=== PATIENT | male | born 1965 | race Hispanic/Latino ===

== ENCOUNTER 2020-12-15 02:45 | Observation (INO) | payer OTHER ==
--- NOTE | 2020-12-15 03:04 | Emergency Department Report ---
HPI - General Chief Complaint: Chest Pain Time Seen by Provider: 12/15/20 02:49 - HPI HPI: Room 19 The patient is a 55-year-old male present with a chief complaint of chest pain. Patient states approximately 45 minutes prior to arrival he developed left-sided chest pain while walking. Patient states he did develop shortness of breath and diaphoresis with this pain but denies nausea/vomiting. Patient states he has never had a stress test or cardiac catheterization ED Past Medical Hx - Past Medical History Hx Hypertension: Yes Hx Heart Attack/AMI: Yes Hx Asthma: Yes Additional medical history: Crohn's disease - Surgical History Additional Surgical History: Foot surgery x2, cyst removed from throat, right upper extremity tendon transplant - Family History Family history: no significant - Social History Smoking Status: Current Every Day Smoker (1/2 pack/day) Substance Use Type: None (Denies illicit drug use) ED Review of Systems ROS: Stated complaint: CHEST PAIN Other details as noted in HPI Constitutional: diaphoresis Eyes: denies: eye pain ENT: denies: throat pain Respiratory: shortness of breath Cardiovascular: chest pain Endocrine: no symptoms reported Gastrointestinal: denies: nausea, vomiting Genitourinary: denies: dysuria Musculoskeletal: back pain Neurological: denies: headache Physical Exam - Physical Exam Vital Signs: Vital Signs 12/15/20 02:58 Pulse Rate 92 H Respiratory 15 Rate Blood Pressure 120/79 [Right] O2 Sat by Pulse 99 Oximetry Physical Exam: GENERAL: The patient is well-developed well-nourished male lying on stretcher not appearing to be in acute distress. [] HEENT: Normocephalic. Atraumatic. Extraocular motions are intact. Patient has moist mucous membranes. NECK: Supple. Trachea midline CHEST/LUNGS: Clear to auscultation. There is no respiratory distress noted. HEART/CARDIOVASCULAR: Regular. There is no tachycardia. There is no gallop rub or murmur. ABDOMEN: Abdomen is soft, nontender. Patient has normal bowel sounds. There is no abdominal distention. SKIN: There is no rash. There is no edema. There is no diaphoresis. NEURO: The patient is awake, alert, and oriented. The patient is cooperative. The patient has no focal neurologic deficits. The patient has normal speech. GCS 15 MUSCULOSKELETAL: There is no evidence of acute injury. ED Course Vital Signs 12/15/20 02:58 Pulse Rate 92 H Respiratory 15 Rate Blood Pressure 120/79 [Right] O2 Sat by Pulse 99 Oximetry ED Medical Decision Making - Lab Data Result diagrams: 12/15/20 03:32 12/15/20 03:32 Laboratory Tests 12/15/20 12/15/20 12/15/20 03:32 03:32 03:32 WBC 9.1 RBC 4.10 Hgb 13.8 Hct 40.3 MCV 98 H MCH 34 H MCHC 34 RDW 13.3 Plt Count 155 Lymph % (Auto) 25.3 [place] % (Auto) 8.7 H Eos % (Auto) 3.2 Baso % (Auto) 0.7 Lymph # (Auto) 2.3 [place] # (Auto) 0.8 Eos # (Auto) 0.3 Baso # (Auto) 0.1 Seg Neutrophils % 62.1 Seg Neutrophils # 5.7 PT 14.3 INR 1.06 Sodium 138 Potassium 4.3 Chloride 102.4 Carbon Dioxide 29 Anion Gap 11 BUN 16 Creatinine 0.9 Estimated GFR > 60 BUN/Creatinine Ratio 18 Glucose 96 Calcium 9.5 Total Creatine Kinase 91 CK-MB (CK-2) 1.6 CK-MB (CK-2) Rel Index 1.7 Troponin T < 0.010 - EKG Data -: EKG Interpreted by Me EKG shows normal: sinus rhythm Rate: normal - EKG Data When compared to previous EKG there are: previous EKG unavailable Interpretation: nonspecific ST-T wave zane (T wave inversion in lead III) - Radiology Data Radiology results: report reviewed (Chest x-ray), image reviewed ( chest x-ray) interpreted by me: Chest x-ray-no definite focal infiltrates. No pneumothorax. Elevated right hemidiaphragm [facility] [address] [place] [address] XRay Report Signed Patient: CHRISTA DUMONT MR#: [id number] : 1965 Acct:[id number] Age/Sex: 55 / M ADM Date: 12/15/20 Loc: ED Attending Dr: Ordering Physician: RISA PARKER MD Date of Service: 12/15/20 Procedure(s): XR chest 1V ap Accession Number(s): [id number] cc: RISA PARKER MD Fluoro Time In Minutes: CHEST 1 VIEW INDICATION / CLINICAL INFORMATION: chest pain. COMPARISON: None available. FINDINGS: SUPPORT DEVICES: None. HEART / MEDIASTINUM: No significant abnormality. LUNGS / PLEURA: No significant pulmonary or pleural abnormality. No pneumothorax. Mild pulmonary venous hypertension. ADDITIONAL FINDINGS: Mild elevation of the right hemidiaphragm. IMPRESSION: 1. Mild pulmonary venous hypertension. Signer Name: Darlene Lopez MD Signed: 12/15/2020 4:44 AM Workstation Name: [id number] Transcribed By: JR Dictated By: Darlene Lopez MD Electronically Authenticated By: Darlene Lopez MD Signed Date/Time: 12/15/20443 DD/ 2 TD/TT: Print Cancel - Differential Diagnosis ACS, pericarditis, GERD Critical care attestation.: If time is entered above; I have spent that time in minutes in the direct care of this critically ill patient, excluding procedure time. ED Disposition Clinical Impression: Chest pain Disposition: 09 OP ADMIT IP TO THIS HOSP Is pt being admited?: Yes Does the pt Need Aspirin: Yes Condition: Fair Instructions: Nonspecific Chest Pain, Adult Time of Disposition: 04:53 (Hospitalist paged (Dr Garcia)) Heart Score - HEART Score History: Moderately suspicious EKG: Non-specific Age: 45-65 Risk factors: 1-2 risk factors Troponin: < normal limit HEART Score: 4 - EKG Read Time Time EKG Completed: 03:05 EKG Read Time: 03:08
[2020-12-15 03:48] LABS: Basophils # (Auto) 0.1 K/mm3 (0.0-0.1); Basophils % (Auto) 0.7 % (0.0-1.8); Eosinophils # (Auto) 0.3 K/mm3 (0.0-0.4); Eosinophils % (Auto) 3.2 % (0.0-4.3); Hematocrit 40.3 % (35.5-45.6); Hemoglobin 13.8 gm/dl (11.8-15.2); Lymphocytes # (Auto) 2.3 K/mm3 (1.2-5.4); Lymphocytes % (Auto) 25.3 % (13.4-35.0); Mean Corpuscular HGB Conc 34 % (32-34); Mean Corpuscular Volume 98 fl (84-94); Monocytes # (Auto) 0.8 K/mm3 (0.0-0.8); Monocytes % (Auto) 8.7 % (0.0-7.3); Platelet Count 155 K/mm3 (140-440); Red Cell Distribution Width 13.3 % (13.2-15.2)
[2020-12-15 03:55] LABS: INR 1.06 (0.87-1.13)
[2020-12-15 04:08] LABS: Creatine Kinase MB 1.6 ng/mL (0.0-4.0)
[2020-12-15 04:10] LABS: BUN/Creatinine Ratio 18; Blood Urea Nitrogen 16 mg/dL (9-20); Calcium 9.5 mg/dL (8.4-10.2); Hemolysis Index 11
--- NOTE | 2020-12-15 04:49 | XRay Report ---
CHEST 1 VIEW INDICATION / CLINICAL INFORMATION: chest pain. COMPARISON: None available. FINDINGS: SUPPORT DEVICES: None. HEART / MEDIASTINUM: No significant abnormality. LUNGS / PLEURA: No significant pulmonary or pleural abnormality. No pneumothorax. Mild pulmonary veno us hypertension. ADDITIONAL FINDINGS: Mild elevation of the right hemidiaphragm. IMPRESSION: 1. Mild pulmonary venous hypertension. Signer Name: Darlene Lopez MD Signed: 12/15/2020 4:44 AM Workstation Name: [id number]
[2020-12-15] MEDS ORDERED: ONDANSETRON 4 MG/2 ML INJ IV PRN (05:04)
[2020-12-15] MEDS ORDERED: MAGNESIUM HYDROXIDE (MOM) ORAL LIQD UDC PO PRN (05:04)
[2020-12-15] MEDS ORDERED: ACETAMINOPHEN 325 MG TAB PO PRN ×2 (05:04)
[2020-12-15] MEDS ORDERED: MORPHINE 4 MG/1 ML INJ IV PRN (05:04)
[2020-12-15] MEDS ORDERED: NITROGLYCERIN 0.4 MG TAB SUBL SL PRN (05:04)
[2020-12-15] MEDS ORDERED: traMADol 50 MG TAB PO PRN (05:04)
--- NOTE | 2020-12-15 05:30 | History and Physical Report ---
History of Present Illness Date of examination: 12/15/20 Date of admission: 12/15/2020 Chief complaint: Chest Pain History of present illness: 55-year-old white male presenting to the emergency room today complaining of chest pain. Chest pain is said to be left-sided and lasting about 30 to 45 minutes. He was doing some walking when chest pain suddenly started. He had some associated shortness of breath and diaphoresis. He denies any headaches, no nausea vomiting, no abdominal pain. Denies any fever or chills. Patient has not had any cardiac work-up in the past. Work-up in the emergency room, EKG and labs were unremarkable. Chest x-ray shows mild pulmonary venous hypertension. Patient is being admitted for chest pain work-up. Past History Past Medical History: other (Crohn's Disease,Asthma) Past Surgical History: Other ( Foot surgery x2, cyst removed from throat, right upper extremity tendon transplant) Social history: smoking (Current daily smoker- 1/2 pack/day.) Family history: no significant family history Medications and Allergies Allergies Allergy/AdvReac Type Severity Reaction Status Date / Time Sulfa (Sulfonamide Allergy Anaphylaxis Verified 12/15/20 03:48 Antibiotics) Active Meds: Active Medications Acetaminophen (Acetaminophen 325 Mg Tab) 650 mg PO Q4H PRN PRN Reason: Pain MILD(1-3)/Fever >100.5/BLOCK Acetaminophen (Acetaminophen 325 Mg Tab) 650 mg PO Q6H PRN PRN Reason: Pain, Mild (1-3) Aspirin (Aspirin Ec 325 Mg Tab) 325 mg PO QDAY BETHANIE Enoxaparin Sodium (Enoxaparin 40 Mg/0.4 Ml Inj) 40 mg SUB-Q QDAY@2200 BETHANIE; Protocol Magnesium Hydroxide (Magnesium Hydroxide (Mom) Oral Liqd Udc) 30 ml PO Q4H PRN PRN Reason: Constipation Morphine Sulfate (Morphine 4 Mg/1 Ml Inj) 2 mg IV Q5MIN PRN PRN Reason: Chest Pain Nitroglycerin (Nitroglycerin 0.4 Mg Tab Subl) 0.4 mg SL Q5M PRN PRN Reason: Chest Pain Ondansetron HCl (Ondansetron 4 Mg/2 Ml Inj) 4 mg IV Q8H PRN PRN Reason: Nausea And Vomiting Sodium Chloride (Sodium Chloride 0.9% 10 Ml Flush Syringe) 10 ml IV BID BETHANIE Sodium Chloride (Sodium Chloride 0.9% 10 Ml Flush Syringe) 10 ml IV PRN PRN PRN Reason: LINE FLUSH Sodium Chloride (Sodium Chloride 0.9% 10 Ml Flush Syringe) 10 ml IV PRN PRN PRN Reason: LINE FLUSH Tramadol HCl (Tramadol 50 Mg Tab) 50 mg PO Q6H PRN PRN Reason: Pain, Moderate (4-6) Review of Systems Constitutional: no fever, no chills Ears, nose, mouth and throat: no nasal congestion, no sore throat Cardiovascular: chest pain, no palpitations Respiratory: no cough, no shortness of breath Gastrointestinal: no abdominal pain, no nausea, no vomiting, no diarrhea Genitourinary Male: no dysuria, no hematuria Musculoskeletal: no neck pain, no low back pain Integumentary: no rash, no pruritis Neurological: no headaches, no confusion Psychiatric: no anxiety, no depression Endocrine: no polyphagia, no polydipsia, no polyuria, no nocturia Exam - Constitutional Vitals: Temp Pulse Resp BP Pulse Ox 82 18 125/83 99 12/15/20 05:01 12/15/20 05:01 12/15/20 05:01 12/15/20 05:01 General appearance: Present: no acute distress, well-nourished - EENT Eyes: Present: PERRL, EOM intact. Absent: scleral icterus ENT: hearing intact, clear oral mucosa, dentition normal - Neck Neck: Present: supple, normal ROM - Respiratory Respiratory effort: normal Respiratory: bilateral: CTA - Cardiovascular Rhythm: regular Heart Sounds: Present: S1 & S2. Absent: gallop, systolic murmur, diastolic murmur, rub, click - Extremities Extremities: no ischemia, pulses intact, pulses symmetrical, No edema, normal temperature, normal color, Full ROM Peripheral Pulses: within normal limits - Abdominal General gastrointestinal: Present: soft, non-tender, non-distended, normal bowel sounds. Absent: mass - Integumentary Integumentary: Present: clear, warm, dry. Absent: rash - Musculoskeletal Musculoskeletal: strength equal bilaterally - Psychiatric Psychiatric: appropriate mood/affect, intact judgment & insight, memory intact, cooperative - Neurologic Neurologic: CNII-XII intact, no focal deficits, moves all extremities HEART Score - HEART Score History: Moderately suspicious EKG: Non-specific Age: 45-65 Risk factors: 1-2 risk factors Troponin: Troponin T < 0.010 ng/mL (0.00-0.029) 12/15/20 03:32 Troponin: < normal limit HEART Score: 4 Results - Labs CBC & Chem 7: 12/15/20 03:32 12/15/20 03:32 Labs: Abnormal lab results 12/15/20 Range/Units 03:32 MCV 98 H (84-94) fl MCH 34 H (28-32) pg [place] % (Auto) 8.7 H (0.0-7.3) % Assessment and Plan - Patient Problems (1) Chest pain Current Visit: Yes Status: Acute Plan to address problem: Patient admitted and placed on telemetry. We will check serial cardiac enzymes. Patient started on aspirin ,sublingual nitroglycerin and IV morphine as needed for chest pain. We will schedule for stress test. (2) DVT prophylaxis Current Visit: Yes Status: Acute Plan to address problem: Patient placed on subcutaneous Lovenox. (3) Full code status Current Visit: Yes Status: Acute Plan to address problem: Patient is full code.
[2020-12-15 06:06] LABS: Basophils # (Auto) 0.1 K/mm3 (0.0-0.1); Basophils % (Auto) 1.2 % (0.0-1.8); Eosinophils # (Auto) 0.3 K/mm3 (0.0-0.4); Lymphocytes # (Auto) 2.4 K/mm3 (1.2-5.4); Lymphocytes % (Auto) 27.9 % (13.4-35.0); Mean Corpuscular HGB Conc 36 % (32-34); Mean Corpuscular Volume 97 fl (84-94); Monocytes # (Auto) 0.6 K/mm3 (0.0-0.8); Monocytes % (Auto) 7.2 % (0.0-7.3); Platelet Count 164 K/mm3 (140-440); Red Blood Count 4.04 M/mm3 (3.65-5.03); Red Cell Distribution Width 12.8 % (13.2-15.2)
[2020-12-15 06:20] LABS: BUN/Creatinine Ratio 19; Blood Urea Nitrogen 15 mg/dL (9-20); Calcium 9.4 mg/dL (8.4-10.2); Hemolysis Index 13
[2020-12-15] MEDS ORDERED: REGADENOSON 0.4 MG/5 ML INJ IV ONE (06:58)
--- NOTE | 2020-12-15 10:11 | Discharge Summary ---
Providers - Providers Date of Admission: 12/15/20 04:55 Date of discharge: 12/15/20 Attending physician: MARÍA ELENA BRIGHT 12/15/20 Consult to Cardiac Rehabilitation [CONS] Routine Reason For Exam: Phase I 12/15/20 05:05 Consult to Cardiology [CONS] Routine Consulting Provider: CHAPIS ROCHA Reason For Exam: chest pain Primary care physician: [employer] DISPATCHER Hospitalization Reason for admission: cp Condition: Fair Hospital course: 55-year-old white male presenting to the emergency room yesterday complaining of chest pain. Chest pain is said to be left-sided and lasting about 30 to 45 minutes. He was doing some walking when chest pain suddenly started. He had some associated shortness of breath and diaphoresis. He denies any headaches, no nausea vomiting, no abdominal pain. Denies any fever or chills. Patient has not had any cardiac work-up in the past. Work-up in the emergency room, EKG and labs were unremarkable. Chest x-ray shows mild pulmonary venous hypertension. Patient is being admitted for chest pain work-up. The patient underwent stress test and if found to be negative will likely discharge home. Etiology of chest pain with negative stress test likely GERD. Dedicated discharge time 35 minutes. Disposition: DC- TO HOME OR SELFCARE Final Discharge Diagnosis (Prints w/discharge instructions): GERD, asthma Core Measure Documentation - Palliative Care Palliative Care/ Comfort Measures: Not Applicable - Core Measures Any of the following diagnoses?: none Exam - Constitutional Vitals: Temp Pulse Resp BP Pulse Ox 98.3 F 79 20 133/82 100 12/15/20 07:31 12/15/20 07:31 12/15/20 07:31 12/15/20 07:31 12/15/20 07:31 General appearance: Present: no acute distress, well-nourished - EENT Eyes: Present: PERRL ENT: hearing intact, clear oral mucosa - Neck Neck: Present: supple, normal ROM - Respiratory Respiratory effort: normal Respiratory: bilateral: CTA - Cardiovascular Heart Sounds: Present: S1 & S2. Absent: rub, click - Extremities Extremities: pulses symmetrical, No edema Peripheral Pulses: within normal limits - Abdominal General gastrointestinal: Present: soft, non-tender, non-distended, normal bowel sounds Male genitourinary: Present: normal - Integumentary Integumentary: Present: clear, warm, dry - Musculoskeletal Musculoskeletal: gait normal, strength equal bilaterally - Psychiatric Psychiatric: appropriate mood/affect, intact judgment & insight - Neurologic Neurologic: CNII-XII intact, moves all extremities Plan Activity: advance as tolerated Weight Bearing Status: Weight Bear as Tolerated Follow up with: PRIMARY CARE, [Primary Care Provider] - 7 Days
--- NOTE | 2020-12-15 11:18 | Consultation ---
<STELLA FERNÁNDEZ - Last Filed: 12/15/20 11:24> History of Present Illness Consult date: 12/15/20 Consult reason: chest pain History of present illness: 55-year old M admitted with chest pain. Chest pain is poorly characterized. Chest x-ray reports no interstitial edema. Laboratory measurement shows normal cardiac isoenzymes and troponin. 12-lead ECG is sinus rhythm with non-specific T wave changes. Patient was admitted by the hospitalist who ordered to have a Lexiscan thallium stress test and cardiac consultation. Past History Past Medical History: other (Crohn's Disease,Asthma) Past Surgical History: Other ( Foot surgery x2, cyst removed from throat, right upper extremity tendon transplant) Social history: smoking (Current daily smoker- 1/2 pack/day.) Family history: no significant family history Medications and Allergies Allergies Allergy/AdvReac Type Severity Reaction Status Date / Time Sulfa (Sulfonamide Allergy Anaphylaxis Verified 12/15/20 03:48 Antibiotics) Home Medications Medication Instructions Recorded Confirmed Last Taken Type Aspirin EC [Ecotrin] 325 mg PO QDAY tablet 12/15/20 Unknown Rx Active Meds: Active Medications Acetaminophen (Acetaminophen 325 Mg Tab) 650 mg PO Q4H PRN PRN Reason: Pain MILD(1-3)/Fever >100.5/BLOCK Aspirin (Aspirin Ec 325 Mg Tab) 325 mg PO QDAY BETHANIE Enoxaparin Sodium (Enoxaparin 40 Mg/0.4 Ml Inj) 40 mg SUB-Q QDAY@2200 BETHANIE; Protocol Magnesium Hydroxide (Magnesium Hydroxide (Mom) Oral Liqd Udc) 30 ml PO Q4H PRN PRN Reason: Constipation Morphine Sulfate (Morphine 4 Mg/1 Ml Inj) 2 mg IV Q5MIN PRN PRN Reason: Chest Pain Nitroglycerin (Nitroglycerin 0.4 Mg Tab Subl) 0.4 mg SL Q5M PRN PRN Reason: Chest Pain Ondansetron HCl (Ondansetron 4 Mg/2 Ml Inj) 4 mg IV Q8H PRN PRN Reason: Nausea And Vomiting Sodium Chloride (Sodium Chloride 0.9% 10 Ml Flush Syringe) 10 ml IV BID BETHANIE Sodium Chloride (Sodium Chloride 0.9% 10 Ml Flush Syringe) 10 ml IV PRN PRN PRN Reason: LINE FLUSH Tramadol HCl (Tramadol 50 Mg Tab) 50 mg PO Q6H PRN PRN Reason: Pain, Moderate (4-6) Physical Examination Vital Signs Pulse Resp 94 H 17 12/15/20 02:56 12/15/20 02:56 General appearance: no acute distress HEENT: Positive: PERRL Neck: Positive: trachea midline Cardiac: Positive: Reg Rate and Rhythm Lungs: Positive: Decreased Breath Sounds Neuro: Positive: Grossly Intact Results 12/15/20 05:56 12/15/20 05:56 Cardiac Enzymes 12/15/20 Range/Units 03:32 CK-MB (CK-2) 1.6 (0.0-4.0) ng/mL Coagulation 12/15/20 Range/Units 03:32 PT 14.3 (12.2-14.9) Sec. INR 1.06 (0.87-1.13) CBC 12/15/20 12/15/20 Range/Units 03:32 05:56 WBC 9.1 8.7 (4.5-11.0) K/mm3 RBC 4.10 4.04 (3.65-5.03) M/mm3 Hgb 13.8 14.0 (11.8-15.2) gm/dl Hct 40.3 39.0 (35.5-45.6) % Plt Count 155 164 (140-440) K/mm3 Lymph # (Auto) 2.3 2.4 (1.2-5.4) K/mm3 [place] # (Auto) 0.8 0.6 (0.0-0.8) K/mm3 Eos # (Auto) 0.3 0.3 (0.0-0.4) K/mm3 Baso # (Auto) 0.1 0.1 (0.0-0.1) K/mm3 Comprehensive Metabolic Panel 12/15/20 12/15/20 Range/Units 03:32 05:56 Sodium 138 138 (137-145) mmol/L Potassium 4.3 5.0 (3.6-5.0) mmol/L Chloride 102.4 103.7 (98-107) mmol/L Carbon Dioxide 29 28 (22-30) mmol/L BUN 16 15 (9-20) mg/dL Creatinine 0.9 0.8 (0.8-1.3) mg/dL Glucose 96 90 (75-100) mg/dL Calcium 9.5 9.4 (8.4-10.2) mg/dL Assessment and Plan - Patient Problems (1) Chest pain Status: Acute Plan to address problem: Atypical The patient has ordered for a a Lexiscan thallium stress test. Results are pending. <CHRISTA DENNIS - Last Filed: 12/21/20 23:33> History of Present Illness History of present illness: I SAW THIS PT & AGREE WITH THE Dx & Tx PLAN. Physical Examination Vital Signs Pulse Resp 94 H 17 12/15/20 02:56 12/15/20 02:56 Results 12/15/20 05:56 12/15/20 05:56
[2020-12-15 11:53] VITALS: BP 123/86
[2020-12-15] MEDS ORDERED: ENOXAPARIN 40 MG/0.4 ML INJ SUB-Q SCH (22:00)
[2020-12-16] MEDS ORDERED: ASPIRIN EC 325 MG TAB PO SCH (10:00)
--- NOTE | 2020-12-22 11:05 | Electrocardiograph Report ---
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
--- NOTE | 2020-12-22 11:06 | Electrocardiograph Report ---
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
--- NOTE | 2020-12-22 11:07 | Electrocardiograph Report ---
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
== END 2020-12-15 14:45 | disposition home or self-care (01) ==
LOC: EDBD → ED 02:45 → 4A 04:55
PROVIDERS: ADMIT Internal Medicine Geriatric Medicine; ATTEND Hospitalist
DX: R07.89 Other chest pain (principal); J45.909 Unspecified asthma, uncomplicated; K50.90 Crohn's disease, unspecified, without complications; F17.210 Nicotine dependence, cigarettes, uncomplicated; Z79.899 Other long term (current) drug therapy; Z98.890 Other specified postprocedural states; Z79.82 Long term (current) use of aspirin
CPT/HCPCS: 36415; 71045; 78452; 80048; 82550; 82553; 84484; 85025; 85610; 93005; 93306; 99285; A9502; G0378; J2785; 93017

== ENCOUNTER 2021-01-16 06:16 | Emergency (ER) | payer SELFPAY ==
[2021-01-16 06:33] VITALS: BP 125/84
--- NOTE | 2021-01-16 07:57 | Emergency Department Report ---
ED General Adult HPI - General Chief complaint: Skin Rash Stated complaint: POISON RACHAEL Time Seen by Provider: 01/16/21 07:44 Source: patient Mode of arrival: Ambulatory Limitations: No Limitations - History of Present Illness Initial comments: 55-year-old male patient presents with complaints of itchy rash diffusely to his arms and neck x2 weeks. Patient [place] and came into contact with poison rachael. He denies anyone around him having similar symptoms, fever/chills/sweats, joint pains, or rash extending to the palms or soles. No pain with rash per patient. He states calamine lotion is not helping. Benadryl helps temporarily. -: Sudden - Related Data Previous Rx's Medication Instructions Recorded Last Taken Type Aspirin EC [Ecotrin] 325 mg PO QDAY tablet 12/15/20 Unknown Rx Triamcinolone Acetonide 60 ml TP TID PRN 7 Days #1 lotion 01/16/21 Unknown Rx [Triamcinolone 0.1% LOTION] predniSONE [Deltasone] 20 mg PO QDAY #12 tab 01/16/21 Unknown Rx Allergies Allergy/AdvReac Type Severity Reaction Status Date / Time amoxicillin Allergy Vomiting Verified 01/16/21 06:23 Sulfa (Sulfonamide Allergy Anaphylaxis Verified 12/15/20 03:48 Antibiotics) ED Review of Systems ROS: Stated complaint: POISON RACHAEL Other details as noted in HPI Constitutional: denies: chills, fever, malaise Respiratory: denies: cough Musculoskeletal: denies: arthralgia Skin: rash Neurological: denies: headache ED Past Medical Hx - Past Medical History Hx Hypertension: Yes Hx Heart Attack/AMI: Yes Hx Asthma: Yes Additional medical history: Crohn's disease, bronchitis - Surgical History Additional Surgical History: Foot surgery x2, cyst removed from throat, right upper extremity tendon transplant - Social History Smoking Status: Current Every Day Smoker - Medications Home Medications: Home Medications Medication Instructions Recorded Confirmed Last Taken Type Aspirin EC [Ecotrin] 325 mg PO QDAY tablet 12/15/20 Unknown Rx Triamcinolone Acetonide 60 ml TP TID PRN 7 Days #1 lotion 01/16/21 Unknown Rx [Triamcinolone 0.1% LOTION] predniSONE [Deltasone] 20 mg PO QDAY #12 tab 01/16/21 Unknown Rx ED Physical Exam - General Limitations: No Limitations General appearance: alert, in no apparent distress - Head Head exam: Present: atraumatic - Eye Eye exam: Present: normal appearance - Respiratory Respiratory exam: Absent: respiratory distress - Cardiovascular Cardiovascular Exam: Present: regular rate - Skin Skin exam: Present: warm, dry, intact, normal color, rash (Diffuse papular rash noted bilaterally to arms and to the neck without cellulitic changes or drainage noted; rash does not extend to the webs of the fingers or palms) ED Course Vital Signs 01/16/21 06:23 Temperature 98.6 F Pulse Rate 90 Respiratory 16 Rate Blood Pressure 125/84 O2 Sat by Pulse 97 Oximetry ED Medical Decision Making - Medical Decision Making 55-year-old male patient presents with complaints of itchy rash diffusely to his arms and neck x2 weeks. Patient [place] and came into contact with poison rachael. He denies anyone around him having similar symptoms, fever/chills/sweats, joint pains, or rash extending to the palms or soles. No pain with rash per patient. He states calamine lotion is not helping. Benadryl helps temporarily. Diffuse papular rash noted to upper extremities and neck. We will treat for contact dermatitis with prednisone and triamcinolone. Also recommend OTC Claritin daily. Patient is well-appearing, his vitals are within normal limits, he is stable for discharge home. Care doctor in 3 to 5 days. Strict return precautions were discussed in detail with patient who verbalizes understanding. Critical care attestation.: If time is entered above; I have spent that time in minutes in the direct care of this critically ill patient, excluding procedure time. ED Disposition Clinical Impression: Contact dermatitis Disposition: DC-01 TO HOME OR SELFCARE Is pt being admited?: No Condition: Stable Instructions: Poison Rachael Dermatitis Prescriptions: predniSONE [Deltasone] 20 mg PO QDAY #12 tab Triamcinolone Acetonide [Triamcinolone 0.1% LOTION] 60 ml TP TID PRN 7 Days #1 lotion PRN Reason: Itching Referrals: [facility] [Provider Group] - 3-5 Days
== END 2021-01-16 08:21 | disposition home or self-care (01) ==
LOC: EDBD → ED 06:16
DX: L25.9 Unspecified contact dermatitis, unspecified cause (principal); I10 Essential (primary) hypertension; J45.909 Unspecified asthma, uncomplicated; F17.200 Nicotine dependence, unspecified, uncomplicated; Z98.890 Other specified postprocedural states; Z88.2 Allergy status to sulfonamides; Z88.8 Allergy status to other drugs, medicaments and biological substances; Z79.82 Long term (current) use of aspirin; Z79.899 Other long term (current) drug therapy
CPT/HCPCS: 99281

== ENCOUNTER 2021-03-17 08:54 | Emergency (ER) | payer SELFPAY ==
[2021-03-17 10:11] VITALS: BP 143/92
--- NOTE | 2021-03-17 10:17 | Emergency Department Report ---
- General Chief complaint: Skin Rash Stated complaint: RASH Time Seen by Provider: 03/17/21 10:00 Source: patient Mode of arrival: Ambulatory Limitations: No Limitations - History of Present Illness Initial comments: Patient is a 53-year-old male presents emergency with complaints of an intermittent rash that he has had since the . 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 He states the rash has been there for 2 weeks during this exacerbation. He states its present to his left forearm and left neck. He states that it does itch. He denies any fever, nausea, vomiting, diarrhea, shortness of breath, difficulty swallowing, facial swelling. Past medical history of Crohn's disease. Allergy to penicillin and sulfa. - Related Data Previous Rx's Medication Instructions Recorded Last Taken Type Aspirin EC [Ecotrin] 325 mg PO QDAY tablet 12/15/20 Unknown Rx Triamcinolone Acetonide 60 ml TP TID PRN 7 Days #1 lotion 01/16/21 Unknown Rx [Triamcinolone 0.1% LOTION] predniSONE [Deltasone] 20 mg PO QDAY #12 tab 01/16/21 Unknown Rx Triamcinolone 0.1% [Kenalog 0.1% 1 applic TP TID #1 tube 03/17/21 Unknown Rx CREAM] predniSONE [Deltasone] 20 mg PO QDAY 10 Days #40 tab 03/17/21 Unknown Rx Allergies Allergy/AdvReac Type Severity Reaction Status Date / Time amoxicillin Allergy Vomiting Verified 01/16/21 06:23 Sulfa (Sulfonamide Allergy Anaphylaxis Verified 12/15/20 03:48 Antibiotics) Abscess Boil HPI - HPI Chief Complaint: Skin Rash Stated Complaint: RASH Time Seen by Provider: 03/17/21 10:00 Home Medications: Previous Rx's Medication Instructions Recorded Last Taken Type Aspirin EC [Ecotrin] 325 mg PO QDAY tablet 12/15/20 Unknown Rx Triamcinolone Acetonide 60 ml TP TID PRN 7 Days #1 lotion 01/16/21 Unknown Rx [Triamcinolone 0.1% LOTION] predniSONE [Deltasone] 20 mg PO QDAY #12 tab 01/16/21 Unknown Rx Triamcinolone 0.1% [Kenalog 0.1% 1 applic TP TID #1 tube 03/17/21 Unknown Rx CREAM] predniSONE [Deltasone] 20 mg PO QDAY 10 Days #40 tab 03/17/21 Unknown Rx Allergies/Adverse Reactions: Allergies Allergy/AdvReac Type Severity Reaction Status Date / Time amoxicillin Allergy Vomiting Verified 01/16/21 06:23 Sulfa (Sulfonamide Allergy Anaphylaxis Verified 12/15/20 03:48 Antibiotics) ED Review of Systems ROS: Stated complaint: RASH Other details as noted in HPI Comment: All other systems reviewed and negative ED Past Medical Hx - Past Medical History Hx Hypertension: Yes Hx Heart Attack/AMI: Yes Hx Asthma: Yes Hx COPD: Yes Additional medical history: Crohn's disease, bronchitis - Surgical History Past Surgical History?: Yes Additional Surgical History: Foot surgery x2, cyst removed from throat, right upper extremity tendon transplant - Social History Smoking Status: Current Every Day Smoker - Medications Home Medications: Home Medications Medication Instructions Recorded Confirmed Last Taken Type Aspirin EC [Ecotrin] 325 mg PO QDAY tablet 12/15/20 Unknown Rx Triamcinolone Acetonide 60 ml TP TID PRN 7 Days #1 lotion 01/16/21 Unknown Rx [Triamcinolone 0.1% LOTION] predniSONE [Deltasone] 20 mg PO QDAY #12 tab 01/16/21 Unknown Rx Triamcinolone 0.1% [Kenalog 0.1% 1 applic TP TID #1 tube 03/17/21 Unknown Rx CREAM] predniSONE [Deltasone] 20 mg PO QDAY 10 Days #40 tab 03/17/21 Unknown Rx ED Physical Exam - General Limitations: No Limitations General appearance: alert, in no apparent distress - Head Head exam: Present: atraumatic, normocephalic - Eye Eye exam: Present: normal appearance - ENT ENT exam: Present: mucous membranes moist - Neurological Exam Neurological exam: Present: alert, oriented X3 - Psychiatric Psychiatric exam: Present: normal affect, normal mood - Skin Skin exam: Present: warm, dry, other (maculopapular rash present to the left forearm and left lateral neck, mild erythema, no increased warmth, no blistering, no skin denuding, no necrosis) ED Course Vital Signs 03/17/21 09:02 Temperature 99.1 F Pulse Rate 86 Respiratory 18 Rate Blood Pressure 143/92 O2 Sat by Pulse 97 Oximetry ED Medical Decision Making - Medical Decision Making Patient is a 53-year-old male presents emergency with complaints of an intermittent rash that he has had since the . 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 He states the rash has been there for 2 weeks during this exacerbation. He states its present to his left forearm and left neck. He states that it does itch. He denies any fever, nausea, vomiting, diarrhea, shortness of breath, difficulty swallowing, facial swelling. Past medical history of Crohn's disease. Allergy to penicillin and sulfa. Vitals are stable. On exam:maculopapular rash present to the left forearm and left lateral neck, mild erythema, no increased warmth, no blistering, no skin denuding, no necrosis. Examination looks consistent with a dermatitis. He has no clinical signs of emergent skin condition at this time. No signs of infection. Patient given prescription for medications. Advised patient Please use medication as prescribed. Follow-up with your primary care doctor. Return to emergency room for any new or worsening symptoms. Critical care attestation.: If time is entered above; I have spent that time in minutes in the direct care of this critically ill patient, excluding procedure time. ED Disposition Clinical Impression: Rash Disposition: 01 HOME / SELF CARE / HOMELESS Is pt being admited?: No Does the pt Need Aspirin: No Condition: Stable Instructions: Rash, Adult, [id number] Additional Instructions: Please use medication as prescribed. Follow-up with your primary care doctor. Return to emergency room for any new or worsening symptoms. Prescriptions: predniSONE [Deltasone] 20 mg PO QDAY 10 Days #40 tab Triamcinolone 0.1% [Kenalog 0.1% CREAM] 1 applic TP TID #1 tube Referrals: SOLA PICKARD MD [Staff Physician] - 3-5 Days [facility] [Provider Group] - 3-5 Days [facility] [Outside] - 3-5 Days [facility] [Outside] - 3-5 Days Time of Disposition: 10:16 Print Language: KHMER
== END 2021-03-17 10:27 | disposition home or self-care (01) ==
LOC: EDBD → ED 08:54
DX: R21 Rash and other nonspecific skin eruption (principal); I10 Essential (primary) hypertension; J44.9 Chronic obstructive pulmonary disease, unspecified; F17.200 Nicotine dependence, unspecified, uncomplicated; Z98.890 Other specified postprocedural states; Z88.1 Allergy status to other antibiotic agents; Z88.2 Allergy status to sulfonamides; Z79.82 Long term (current) use of aspirin; Z79.899 Other long term (current) drug therapy
CPT/HCPCS: 99281